=== PATIENT | female | born 1965 | race Caucasian/White ===

== ENCOUNTER 2023-12-20 12:01 | Emergency (ER) | payer OTHER, SELFPAY ==
[2023-12-20 12:33] VITALS: BP 128/82; PULSE 102; RESP 18; TEMP 36.3; O2SAT 98; BMI 26.5
--- NOTE | 2023-12-20 14:09 | DI.RAD.S_ITS ---
PROCEDURE: XR FINGER RT MIN 2V INDICATIONS: thumb pain, swelling TECHNIQUE: AP hand, 2 views of the 1st finger(s) acquired. COMPARISON: None. FINDINGS: Bones: Cortical irregularity and curvilinear calcification over volar aspect of 1st distal phalangeal base is seen concerning for acute avulsion injury in this area suggest clinical correlation. No other fracture or dislocation. Osteoarthritic changes are noted throughout right thumb.. No suspicious bony lesions. Soft tissues: Soft tissue swelling surrounding 1st interphalangeal joint is seen. No suspicious soft tissue calcifications. IMPRESSION: Finding may represent subtle fracture involving volar aspect of 1st distal phalangeal base suggest clinical correlation. Right thumb osteoarthritis. No other fracture or dislocation. Dictated by: Nathan Valenzuela M.D. on 12/20/2023 at 14:54 Approved by: Nathan Valenzuela M.D. on 12/20/2023 at 15:02
--- NOTE | 2023-12-20 14:12 | PC.NURSE ---
PT reports using a garden hose a lot yesterday and believes her thumb swelling may be due to garden sprayer. Pt's spouse thought she might have gotten stung by a bee/bitten and attempted to pop her thumb with a needle, which produced no output.
[2023-12-20] MEDS: IBUPROFEN 400 MG TABLET 800 MG PO (15:51)
[2023-12-20 15:55] VITALS: BP 131/78; PULSE 80; RESP 18; TEMP 36.6; O2SAT 99
--- NOTE | 2023-12-21 12:24 | ED.EXTPRO ---
HPI - Extremity Problem <Sawyer Phelan PA-C - Last Filed: 12/21/23 12:29> General Chief complaint: Extremity Problem,Nontraumatic Stated complaint: Swelling R thumb Time Seen by Provider: 12/20/23 14:12 Source: patient Mode of arrival: Family Vehicle History of Present Illness HPI Narrative: 58-year-old female presents to the ED with right thumb swelling, pain for 2 days. Patient states that she was doing yd work yesterday, was using her thumb to operate the spray your for the yd. Patient denies that she had any trauma to her thumb or hand. However, last night she started experiencing swelling and pain in her right thumb. Denies numbness, tingling, weakness. Patient is not on blood thinners. There is full range of motion of the finger and hand Related Data Allergies Allergy/AdvReac Type Severity Reaction Status Date / Time No Known Drug Allergies Allergy Verified 12/20/23 12:38 Review of Systems <Sawyer Phelan PA-C - Last Filed: 12/21/23 12:29> Constitutional Constitutional: Denies chills, Denies fatigue, Denies fever(s), Denies frequent falls, Denies lethargy and Denies weakness Eyes Eyes: Denies change in vision, Denies eye discharge, Denies irritation and Denies loss of vision ENT Ears, Nose, Mouth, and Throat: Denies change in voice, Denies dizziness, Denies neck pain, Denies sore throat and Denies throat swelling Cardiovascular Cardiovascular: Denies chest pain, Denies irregular heart rhythm, Denies lightheadedness, Denies palpitations, Denies dyspnea, Denies dyspnea on exertion and Denies orthopnea Respiratory Respiratory: Denies cough, Denies dyspnea, Denies dyspnea on exertion and Denies wheezing Gastrointestinal Gastrointestinal: Denies abdominal pain, Denies change in bowel habits, Denies diarrhea, Denies nausea and Denies vomiting Musculoskeletal Musculoskeletal: Denies neck pain and Denies numbness Comments: Right thumb swelling, pain Integumentary/Breasts Skin/Breast: Denies pruritus, Denies erythema, Denies rash and Denies wounds Neurologic Neurologic: Denies behavioral changes, Denies confusion, Denies dizziness, Denies frequent falls, Denies loss of vision, Denies numbness and Denies weakness Psychiatric Psychiatric: Denies anxiety, Denies behavioral changes, Denies confusion, Denies depression, Denies homicidal ideation and Denies suicidal ideation Endocrine Endocrine: Denies fatigue, Denies flushing and Denies palpitations Hematologic/Lymphatic Hematologic/Lymphatic: Denies easy bruising Allergic/Immunologic Allergic/Immunologic: Denies urticaria, Denies throat swelling and Denies wheezing Patient History <Sawyer Phelan PA-C - Last Filed: 12/21/23 12:29> Social History Smoking Status: Never smoker Smoking Status: Never smoker alcohol intake frequency: 0-2 drinks per day Substance Use Type: does not use Exam <Sawyer Phelan PA-C - Last Filed: 12/21/23 12:29> Narrative Exam Narrative: Const General:?cooperative, healthy appearing and comfortable [facility] Head:?normal to inspection Ears:?hearing grossly normal bilaterally Nose:?external nose normal Face and sinus:?normal facial exam and sinuses nontender Mouth:?oral mucosae normal Throat:?posterior oropharynx normal Eyes General:?appearance normal, both eyes and all related structures Neck Neck:?normal visual inspection and no lymphadenopathy noted Resp Effort & Inspection:?normal respiratory effort Auscultation:?clear to auscultation bilaterally Cardio Rate:?regular rate Rhythm:?regular rhythm Musculoskeletal There is swelling and tenderness to palpation of the right thumb, specifically in the region of the distal phalanx. There is full range of motion. Strength and sensation is intact. Patient is neurovascularly intact. Neuro General:?patient alert, patient awake and patient oriented x3 Initial Vital Signs Initial Vital Signs: Vital Signs Temperature 97.3 F L 12/20/23 12:33 Pulse Rate 102 H 12/20/23 12:33 Respiratory Rate 18 12/20/23 12:33 Blood Pressure 128/82 12/20/23 12:33 Pulse Oximetry 98 12/20/23 12:33 Oxygen Delivery Method Room Air 12/20/23 12:33 <Amos Bonilla DO - Last Filed: 12/21/23 12:42> Initial Vital Signs Initial Vital Signs: Vital Signs Temperature 97.3 F L 12/20/23 12:33 Pulse Rate 102 H 12/20/23 12:33 Respiratory Rate 18 12/20/23 12:33 Blood Pressure 128/82 12/20/23 12:33 Pulse Oximetry 98 05/13/24 12:33 Oxygen Delivery Method Room Air 12/20/23 12:33 Course <Sawyer Phelan PA-C - Last Filed: 12/21/23 12:29> Orders Ordered: Discontinued Medications Ibuprofen (Ibuprofen 400 Mg Tablet) 800 mg PO NOW ONE Stop: 12/20/23 15:37 Last Admin: 12/20/23 15:51 Dose: 800 mg Documented By: RB <Amos Bonilla DO - Last Filed: 12/21/23 12:42> Orders Ordered: Discontinued Medications Ibuprofen (Ibuprofen 400 Mg Tablet) 800 mg PO NOW ONE Stop: 12/20/23 15:37 Last Admin: 12/20/23 15:51 Dose: 800 mg Documented By: RB MDM - Extremity (Nontraumatic) <Sawyer Phelan PA-C - Last Filed: 12/21/23 12:29> MDM Narrative Medical decision making narrative: 58-year-old female presents to the ED with right thumb swelling, pain for 2 days. Concern for fracture/dislocation versus musculoskeletal sprain/strain versus other. Patient given ibuprofen for pain. Obtained x-ray which shows a possible subtle fracture involving the volar aspect of the 1st distal phalangeal base. Patient's pain does clinically correlate with the finding. Physical exam is reassuring for full range of motion of the thumb. Discussed findings with patient. Patient was fitted in a thumb spica splint. Patient lives in [place], agrees to follow-up with a ortho/hand specialist in [place]. ED return precautions were discussed with patient. Patient verbalized understanding. Medical records reviewed: Yes Discharge Plan Departure Patient Disposition: Home Clinical Impression: Fracture of thumb Qualifiers: Encounter type: initial encounter Fracture type: closed Phalanx: distal Fracture alignment: nondisplaced Laterality: right Qualified Code(s): S62.524A - Nondisplaced fracture of distal phalanx of right thumb, initial encounter for closed fracture Instructions: DI for Finger Fracture Activity Restrictions/Additional Instructions: Were evaluated in the ED today for a thumb injury. It appears that you might have a subtle fracture of the right thumb. You are being fitted in a thumb spica splint. Please follow-up with the orthopedic or hand specialist as soon as possible for further evaluation. You may take 800 mg of ibuprofen and 1000 mg of Tylenol with food every 8 hours for pain. Return to the ED if you have worsening symptoms, numbness, tingling, weakness. Stand Alone Forms: Patient Portal/API ED Sign-out <Amos Bonilla, DO - Last Filed: 12/21/23 12:42> Cosign ED Attending Cosignature Attestation: Dr Bonilla Co-Sign Statement: I was available for consultation during this patient's emergency department visit. This chart is signed by myself for administrative purposes only. I did not have direct contact with this patient during this visit. They were seen independently by the APC.
== END 2023-12-20 15:56 | disposition home or self-care (01) ==
PROVIDERS: Emergency Provider Student in an Organized Health Care Education/Training Program
DX: S62.514A Nondisplaced fracture of proximal phalanx of right thumb, initial encounter for closed fracture (principal); X50.1XXA Overexertion from prolonged static or awkward postures, initial encounter
CPT/HCPCS: 29130; 73140; 99283